=== PATIENT | male | born 1955 | race Hispanic/Latino ===

== ENCOUNTER 2018-05-04 08:59 | Day surgery (SDC) | payer BC ==
[2018-05-04] MEDS ORDERED: Propofol 10 mg/ml Inj (20 ML) ONE (10:23)
[2018-05-04] MEDS ORDERED: Lactated Ringer's 500 ML IV ONE ×2 (10:42→10:47)
[2018-05-04 11:24] VITALS: TEMP 97
[2018-05-04 11:32] VITALS: BP 159/88; PULSE 74; RESP 16; O2SAT 99
== END 2018-05-04 11:51 | disposition home or self-care (01) ==
LOC: H.ENDO 08:59 → EDSTATUS 11:30 → H.ENDO 11:51
PROVIDERS: ATTEND Internal Medicine Gastroenterology
DX: Z12.11 Encounter for screening for malignant neoplasm of colon (principal); C21.8 Malignant neoplasm of overlapping sites of rectum, anus and anal canal; K57.30 Diverticulosis of large intestine without perforation or abscess without bleeding; K64.8 Other hemorrhoids; K64.4 Residual hemorrhoidal skin tags; Z86.010 Personal history of colon polyps
CPT/HCPCS: 45380; 88305; J2001; J2704; J7120